=== PATIENT | male | born 1945 | race Caucasian/White ===

== ENCOUNTER 2018-11-08 22:46 | Emergency (ER) | payer OTHER ==
[~2018-11-08] VITALS: Ht 188 cm; Wt 93.9 kg
--- NOTE | 2018-11-08 23:00 | NUR ---
PT BIBSELF C/O "N/V CHILLS BACKPAIN TODAY. FEELING WEAK." +N/V -DIZZY. DIAGNOSED WITH AFIB AUGUST 2018. -SOB. RESP EVEN AND UNLABORED. NAD NOTED. PT ON MONITOR IN BED 11 WITH FAMILY AT BEDSIDE. WILL CONTINUE TO MONITOR.
--- NOTE | 2018-11-08 23:15 | NUR ---
BLOOD DRAWN AND GIVEN TO LAB
--- NOTE | 2018-11-08 23:21 | NUR ---
TECH AT BEDSIDE FOR EKG
[2018-11-08] MEDS ORDERED: ONDANSETRON HCL/PF 4 MG/2 ML VIAL ONE (23:27)
[2018-11-08] MEDS ORDERED: ACETAMINOPHEN ES 500 MG TABLET ONE (23:27)
[2018-11-08] MEDS ORDERED: IV NS 0.9% 500 ML BAG IV ONE (23:30)
[2018-11-08] MEDS ORDERED: ACETAMINOPHEN 325 MG TABLET PO ONE (23:30)
[2018-11-08] MEDS ORDERED: ONDANSETRON HCL/PF 4 MG/2 ML VIAL IVP ONE (23:30)
[2018-11-08 23:31] LABS: BASOPHILS % (AUTO) 0.4 % (0.0-2.0); EOSINOPHILS % (AUTO) 0.3 % (0.0-6.0); HEMATOCRIT 44 % (39-51); HEMOGLOBIN 15.3 g/dL (13.5-17.5); LYMPHOCYTES # (AUTO) 0.9 /CMM (0.8-4.8); LYMPHOCYTES % (AUTO) 12.2 % (20.0-44.0); MEAN CORPUSCULAR HGB CONC 35 g/dl (31.0-36.0); MEAN CORPUSCULAR VOLUME 92 fL (80-96); MONOCYTES # (AUTO) 0.2 /CMM (0.1-1.30); MONOCYTES % (AUTO) 3.2 % (2.0-12.0); NEUTROPHILS # (AUTO) 5.9 /CMM (1.8-8.9); NEUTROPHILS % (AUTO) 83.9 % (43.0-81.0); PLATELET COUNT (AUTO) 202 /CMM (150-450); RED BLOOD CELL COUNT(AUTO) 4.75 MIL/uL (4.5-6.0); WHITE BLOOD COUNT (AUTO) 7.1 K/uL (4.3-11.0)
--- NOTE | 2018-11-08 23:33 | NUR ---
RADIOLOGY AT BEDSIDE FOR XRAY
[2018-11-08 23:34] LABS: CALCIUM, SERUM 8.7 mg/dL (8.5-10.1); CARBON DIOXIDE 25 mmol/L (21-32); CHLORIDE 104 mmol/L (98-107); GLUCOSE 145 mg/dL (74-106); POTASSIUM 3.7 mmol/L (3.5-5.1); SODIUM SERUM 140 mmol/L (136-145); UREA NITROGEN, BLOOD 16 mg/dL (7-18)
[2018-11-08 23:39] LABS: ALANINE AMINOTRANSFERASE 45 U/L (12-78); ALKALINE PHOSPHATASE 88 U/L (46-116); ASPARTATE AMINOTRANSFERASE 23 U/L (15-37); BILIRUBIN,DIRECT 0.1 mg/dL (0.0-0.2); BILIRUBIN,TOTAL 0.5 mg/dL (0.2-1.0); TOTAL PROTEIN, SERUM 7.5 g/dL (6.4-8.2)
[2018-11-09 00:16] LABS: APPEARANCE,URINE Clear (CLEAR); BILIRUBIN,URINE Negative (NEGATIVE); BLOOD, URINE Negative Ery/uL (NEGATIVE); COLOR,URINE Yellow (YELLOW); KETONES,URINE Negative (NEGATIVE); LEUKOCYTE ESTERASE ,URINE Negative (NEGATIVE); NITRITE, URINE Negative (NEGATIVE); PROTEIN,URINE Negative (NEGATIVE); UGLUCOSE Negative (NEGATIVE); UROBILINOGEN,URINE 0.2 EU/dL (0.2)
[2018-11-09 00:49] VITALS: BP 106/62
--- NOTE | 2018-11-09 00:56 | NUR ---
IV removed. Catheter intact and site benign. Pressure and 4x4 applied to site. No bleeding noted.Patient discharged to home in stable condition. Written and verbal after care instructions given. Patient verbalizes understanding of instruction. PT AMBULATORY WITH STEADY GAIT ACOMPANIED BY FAMILY.
== END 2018-11-09 01:25 | disposition home or self-care (01) ==
LOC: ER 22:50
DX: B34.9 Viral infection, unspecified (principal); R11.2 Nausea with vomiting, unspecified; I10 Essential (primary) hypertension; I48.91 Unspecified atrial fibrillation; R00.0 Tachycardia, unspecified
CPT/HCPCS: 36415; 71045; 80048; 80076; 81001; 83605; 84484; 85025; 87040 ×2; 87804 ×2; 93005; 96361; 96374; 99284; J2405; J7040; 81000-TC; 87400; J7030